=== PATIENT | female | born 1950 | race Caucasian/White ===

== ENCOUNTER 2019-05-29 07:14 | Emergency (ER) | payer MEDICARE ==
--- NOTE | 2019-05-29 08:05 | ED ---
Skin Complaint - HPI Summary HPI Summary: This pt is a 68 Y/O F presenting to [facility] accompanied by her son with a CC of shingles that has been present for 6 days. She states that she has not been diagnosed and is not taking any pharmaceutical drugs but is currently taking herbs and oils for her condition. She states that her condition has worsened this morning when she woke up and states that she has been unable to close her L eye and can feel my nerves in my L ear. The rash is located to her L side of her neck and her L shoulder. She stats that the pain feels like her nerve endings are on fire and are burning intermittently. She states that the pain lasted for three days and is currently subsiding. She rates the pain a 2/10 in severity. She states that she has decreased hearing normally but her L side is much quitter and sounds like she is in a hallway. She denies any fevers, coughs , headaches, SOB, CP, and N/V. She states that she does not want to use any steroids. She states no aggravating or alleviating factors. - History of Current Complaint Chief Complaint: EDRashSkinAbscess Time Seen by Provider: 05/29/19 07:53 Stated Complaint: SHINGLES/PARALYSIS ON LEFT SIDE OF FACE PER PT Hx Obtained From: Patient Onset/Duration: Started Days Ago - 6, Still Present, Worse Since - this morning Skin Exposure Onset/Duration: Days Ago - 6 Timing: Constant Onset Severity: Moderate Current Severity: Mild Pain Intensity: 2 Pain Scale Used: 0-10 Numeric Skin Location: Face - L side including L eye and L ear, Neck - L sided, Other: - L shoulder Character: Hives Aggravating Symptom(s): Nothing Alleviating Symptom(s): Nothing Associated Signs & Symptoms: Negative - fevers, coughs, headaches, SOB, CP, and N/V, Rash - L shoulder and neck - Allergy/Home Medications Allergies/Adverse Reactions: Allergies Allergy/AdvReac Type Severity Reaction Status Date / Time No Known Allergies Allergy Verified 05/29/19 07:20 PMH/Surg Hx/FS Hx/Imm Hx Previously Healthy: Yes Endocrine/Hematology History: Denies: Hx Diabetes Cardiovascular History: Denies: Hx Hypertension Infectious Disease History: No Infectious Disease History: Denies: Traveled Outside the [place] in Last 30 Days - Family History Known Family History: Negative: Cardiac Disease, Hypertension - Social History Occupation: Retired Lives: With Family Alcohol Use: None Hx Substance Use: No Substance Use Type: Reports: None Hx Tobacco Use: No Smoking Status (MU): Former Smoker Amount Used/How Often: States she quit in 1987 Review of Systems Negative: Fever ENT: Other - States that her L eye and L ear are paralysied Negative: Chest Pain Negative: Shortness Of Breath, Cough Negative: Vomiting, Nausea Skin: Other - Pain associated with the rash, has decreased since onset Positive: Rash - L shoudler and L neck Negative: Headache All Other Systems Reviewed And Are Negative: Yes Physical Exam - Summary Physical Exam Summary: Appearance: The patient is well-nourished in no acute distress and in no acute pain. Skin: Vesicular blistering erythematous rash over her upper L torso, barely crosses the midline. HEENT: The head is normocephalic and atraumatic. The pupils are equal and reactive. The conjunctivae are clear and without drainage. Nares are patent and without drainage. Mouth reveals moist mucous membranes and the throat is without erythema and exudate. The external ears are intact. The ear canals are patent and without drainage. The tympanic membranes are intact. No versicles in her ear. Neck: The neck is supple with full range of motion and non-tender. There are no carotid bruits. There is no neck vein distension. Respiratory: Chest is non-tender. Lungs are clear to auscultation and breath sounds are symmetrical and equal. Cardiovascular: Heart is regular rate and rhythm. There is no murmur or rub auscultated. There is no peripheral edema and pulses are symmetrical and equal. Abdomen: The abdomen is soft and non-tender. There are normal bowel sounds heard in all four quadrants and there is no organomegaly palpated. Musculoskeletal: There is no back tenderness noted. Extremities are non-tender with full range of motion. There is good capillary refill. There is no peripheral edema or calf tenderness elicited. Neurological: Patient is alert and oriented to person, place and time. The patient has symmetrical motor strength in all four extremities. Cranial nerves are grossly intact. Deep tendon reflexes are symmetrical and equal in all four extremities. Partial facial paralysis to her lower facial. Psychiatric: The patient has an appropriate affect and does not exhibit any anxiety or depression. Triage Information Reviewed: Yes Vital Signs On Initial Exam: Initial Vitals Temp Pulse Resp BP Pulse Ox 97.5 F 84 16 140/95 99 05/29/19 07:17 05/29/19 07:17 05/29/19 07:17 05/29/19 07:17 05/29/19 07:17 Vital Signs Reviewed: Yes Procedures - Sedation Patient Received Moderate/Deep Sedation with Procedure: No Diagnostics - Vital Signs Vital Signs Temp Pulse Resp BP Pulse Ox 05/29/19 07:17 97.5 F 84 16 140/95 99 - Laboratory Lab Statement: Any lab studies that have been ordered have been reviewed, and results considered in the medical decision making process. Course/Dx - Course Course Of Treatment: Ms. Mercado has successfully diagnosed herself as having shingles. She has been using integrative medicine. It has been over 72 hours but she has a new onset of symptoms spread to her face with a Jojo Coronado syndrome. Therefore I recommended antivirals and close follow-up at [facility]. - Diagnoses Provider Diagnoses: Shingles, Pavo Coronado syndrome (geniculate herpes zoster) Discharge ED - Sign-Out/Discharge Documenting (check all that apply): Patient Departure - discharge - Discharge Plan Condition: Stable Disposition: HOME Prescriptions: ValACYclovir (*) [Valtrex 1 GM(*)] 1 gm PO TID #21 tab Patient Education Materials: Shingles (ED) Referrals: [facility] [Outside] - 3 Days Additional Instructions: PLEASE RETURN TO THE ED IMMEDIATELY FOR WORSENING OR CONCERNING SYMPTOMS AND FOLLOW UP WITH [facility] IN 1-3 DAYS. Take the prescribed medications as directed. - Billing Disposition and Condition Condition: STABLE Disposition: Home - Attestation Statements Document Initiated by Usha: Yes Documenting Scribe: Kelvin Farias Provider For Whom Usha is Documenting (Include Credential): Jairon Dumont MD Scribe Attestation: IKelvin, scribed for Jairon Dumont MD on 05/29/19 at 0946. Scribe Documentation Reviewed: Yes Provider Attestation: The documentation as recorded by the Kelvin tavera accurately reflects the service I personally performed and the decisions made by me, Jairon Dumont MD Status of Scribe Document: Viewed
[2019-05-29 08:50] VITALS: BP 124/86
== END 2019-05-29 08:45 | disposition home or self-care (01) ==
LOC: ED 07:14
DX: B02.9 Zoster without complications (principal); B02.21 Postherpetic geniculate ganglionitis; Z87.891 Personal history of nicotine dependence
CPT/HCPCS: 99282

== ENCOUNTER 2019-07-05 12:45 | Emergency (ER) | payer MEDICARE ==
[2019-07-05 13:26] VITALS: BP 130/95
--- NOTE | 2019-07-05 13:40 | UC ---
Ear Complaint HPI - HPI Summary HPI Summary: Patient is a 68yo female presenting with complaint that the rubber end of her hearing aid is stuck in her left ear since last night. Patient states she " tried everything to get it out." Tried flushing with water, scooping out with q tip, and tried looking for it with flashlight. Patient is concerned it may not come out. Denies feeling of foreign body but states that ear "has always felt different." Denies pain. Denies drainage from ear. - History of Current Complaint Chief Complaint: UCForeignBody Stated Complaint: EAR COMPLAINT Hx Obtained From: Patient Pain Intensity: 0 - Allergies/Home Medications Allergies/Adverse Reactions: Allergies Allergy/AdvReac Type Severity Reaction Status Date / Time No Known Allergies Allergy Verified 07/05/19 13:15 Home Medications: Home Medications Naproxen Sodium [Aleve] 440 mg PO ONCE 07/05/19 [History Confirmed 07/05/19] PMH/Surg Hx/FS Hx/Imm Hx Previously Healthy: Yes - Surgical History Surgical History: Yes Surgery Procedure, Year, and Place: - Family History Known Family History: Positive: Non-Contributory Negative: Cardiac Disease, Hypertension - Social History Lives: With Family Alcohol Use: None Substance Use Type: None Smoking Status (MU): Former Smoker Amount Used/How Often: States she quit in 1987 Review of Systems All Other Systems Reviewed And Are Negative: No Constitutional: Positive: Negative Skin: Positive: Negative ENT: Positive: Other - foreign body in L ear Respiratory: Positive: Negative Cardiovascular: Positive: Negative Neurological: Positive: Negative Physical Exam Triage Information Reviewed: Yes Appearance: Well-Appearing, No Pain Distress, Well-Nourished Vital Signs: Initial Vital Signs Temp 98 F 07/05/19 13:16 Pulse 64 07/05/19 13:16 Resp 16 07/05/19 13:16 BP 0/0 07/05/19 13:16 Pulse Ox 100 07/05/19 13:16 Vital Signs Reviewed: Yes Eyes: Positive: Conjunctiva Clear ENT: Positive: Hearing grossly normal, Pharynx normal, TMs normal - TMs intact b /l. no foreign body noted in either ear. no discharge or drainage.. Negative: TM bulging, TM dull, TM red Neck: Positive: Supple Respiratory: Positive: No respiratory distress Neurological: Positive: Alert Psychological: Positive: Age Appropriate Behavior Skin Exam: Normal Ear Complaint Course/Dx - Course Course Of Treatment: No foreign body noted in either ear. Dr. Madrid also looked, as the patient requested reassurance. Educated patient on foreign bodies in ears and provided reassurance that her ears are normal and without foreign bodies. Patient voiced understanding. - Differential Dx/Diagnosis Provider Diagnosis: Normal ear exam Discharge ED - Sign-Out/Discharge Documenting (check all that apply): Patient Departure All imaging exams completed and their final reports reviewed: No Studies - Discharge Plan Condition: Stable Disposition: HOME Patient Education Materials: Ear Foreign Body (ED) Additional Instructions: As discussed, the rubber end of your hearing aid is not stuck in your ear. It likely fell out on its own. Both ears are clear and normal. If this ever happens again, you are more than welcome to come back. Hearing aids are easily removed when stuck in the ear. - Billing Disposition and Condition Condition: STABLE Disposition: Home
== END 2019-07-05 14:00 | disposition home or self-care (01) ==
LOC: UCEAST 12:45
DX: Z03.89 Encounter for observation for other suspected diseases and conditions ruled out (principal); Z87.891 Personal history of nicotine dependence
CPT/HCPCS: 99211; G0463

== ENCOUNTER 2019-11-03 08:45 | Day surgery (SDC) | payer MEDICARE ==
[~2019-11-03 08:45] MED LIST: Acetaminophen TAB* 325 MG PO PRN; Buffered Lidocaine 1% SYRIN* 1 ML/SYRINGE INTRADERM ONE
[2019-11-03] MEDS ORDERED: Midazolam* 1 MG/ML 5 ML VIAL (5 MG) ONE (09:53)
[2019-11-03] MEDS ORDERED: Cyclopentolate 1% OPTH.SOL* 2 ML BTL ONE (10:12)
[2019-11-03] MEDS ORDERED: Lidocaine 1% MPF ** 5 ML VIAL ONE (10:13)
[2019-11-03] MEDS ORDERED: Phenylephrine OPHTH SOL 2.5%* 2 ML ONE (10:13)
[2019-11-03] MEDS ORDERED: Tropicamide 1% OPTH.SOL* BTL ONE (10:13)
[2019-11-03] MEDS ORDERED: Neomycin/Polymy/Dex OPHTH.OIN* 3.5 GM ONE (10:13)
[2019-11-03] MEDS ORDERED: Ketorolac 0.5% OPHTH (NF) 0.5 % 5 ML BTL ONE (10:13)
[2019-11-03] MEDS ORDERED: Tetracaine 0.5% OPTH.SOL 4 ML* 1 DROP BTL ONE (10:13)
[2019-11-03] MEDS ORDERED: fentaNYL* 50 MCG/ML 2 ML VIAL (100 MCG VIAL) ONE (10:31)
[2019-11-03 11:19] VITALS: BP 150/76
--- NOTE | 2019-11-03 12:01 | OP ---
DATE OF OPERATION/DATE OF DICTATION: 11/03/2019 - [facility] DATE OF : 1950. SURGEON: Dr. Elmer Caballero. BOTTLE HOUSE PUMPER: None. ANESTHESIA: Topical with intravenous sedation. PRE-OP DIAGNOSIS: Cataract, left eye. POST-OP DIAGNOSIS: Cataract, left eye. OPERATIVE PROCEDURE: Phacoemulsification and cataract extraction with posterior chamber intraocular lens implant, left eye. COMPLICATIONS: None. BLOOD LOSS: None. DESCRIPTION OF PROCEDURE: The patient was brought to the operating room and received a small amount of intravenous sedation. A drop of Tetracaine was placed in her left eye. She was prepped and draped in the usual sterile fashion for ophthalmic surgery and attention was directed to the left eye where a speculum was placed. A paracentesis was created at the 5 o'clock position and 0.1 cc of 1 percent preservative-free Lidocaine was injected into the anterior chamber followed by DisCoVisc. The eye was digitally stabilized while a 2.75 mm keratome was used to create a triplanar clear corneal incision at the 3 o'clock position. A continuous curvilinear capsulorrhexis was created with a cystotome and Utrata forceps. BSS on a cannula was used to hydrodissect the lens from the capsule. Phacoemulsification was performed in a divide-and- conquer technique to create four fragments which were removed. Residual cortical material was removed with irrigation and aspiration. DisCoVisc was used to inflate the capsular bag and an AUOOTO 20.0 diopter lens was folded and inserted into the capsular bag. DisCoVisc was removed using irrigation and aspiration. BSS on a cannula was used to hydrate the corneal stroma and seal the wound. At the end of the case the pupil was round and the lens was centered. The eye was of normal pressure and the wound was water tight. The speculum was removed and topical Maxitrol ointment was placed on the surface of the eye. The eye was closed, patched and shielded and the patient was sent to the recovery room in stable condition with post operative instructions and follow-up appointment given. [id number]/CPS #: [id number] MTDD
== END 2019-11-03 11:12 | disposition home or self-care (01) ==
LOC: OREAST 08:45
PROVIDERS: ATTEND Ophthalmology
DX: H25.032 Anterior subcapsular polar age-related cataract, left eye (principal); H25.042 Posterior subcapsular polar age-related cataract, left eye; Z87.891 Personal history of nicotine dependence; M19.90 Unspecified osteoarthritis, unspecified site; I83.90 Asymptomatic varicose veins of unspecified lower extremity
CPT/HCPCS: A9270-GY; J2250; J3010; V2632

== ENCOUNTER 2021-04-03 15:31 | Inpatient (IN) ==
[2021-04-03 16:27] LABS: ABS Basophils 0.1 10^3/ul (0-0.2); ABS Eosinophils 0.2 10^3/ul (0-0.6); ABS Lymphocytes 2.1 10^3/ul (1.0-4.8); ABS Monocytes 0.6 10^3/ul (0-0.8); ABS Neutrophils 3.7 10^3/ul (1.5-7.7); Eosinophil % 2.8 %; Hematocrit 38 % (35-47); Hemoglobin 12.7 g/dL (12.0-16.0); Lymphocyte % 31.9 %; Mean Corpuscular HGB Conc 34 g/dL (31-36); Mean Corpuscular Hemoglobin 31 pg (27-31); Mean Corpuscular Volume 93 fL (80-97); Mean Platelet Volume 8.1 fL (7.4-10.4); Platelet Count 247 10^3/uL (150-450); Red Cell Distribution Width 15 % (10-15); White Blood Count 6.7 10^3/uL (3.5-10.8)
[2021-04-03 16:47] LABS: Albumin 4.1 g/dL (3.2-5.2); Albumin/Globulin Ratio 1.3 (1-3); Calcium 8.7 mg/dL (8.6-10.3); EGFR African American 84.6 (>60); EGFR Non-African American 69.9 (>60); Globulin 3.2 g/dL (2-4); Magnesium 2.3 mg/dL (1.9-2.7); Potassium 4.1 mmol/L (3.5-5.0); Total Bilirubin 0.3 mg/dL (0.2-1.0); Total Protein 7.3 g/dL (6.4-8.9)
[2021-04-03 16:56] LABS: INR 1.04 (0.86-1.15)
[2021-04-03 17:04] LABS: T4, Total 8.36 mcg/dL (6.09-12.23)
[2021-04-03 17:08] LABS: TSH Ultra Thyroid Stim Horm 2.39 mcIU/mL (0.34-5.60)
[2021-04-03] MEDS: cefTRIAXone 2 GM ADDV.VIAL 2 GM in NS 0.9% 100 ml BAG 100 ML IV SCH (17:59)
[2021-04-03] MEDS: Enoxaparin 40 MG/0.4 ML SYR SUBCUT SCH (18:00)
[2021-04-03 19:04] LABS: HDL Cholesterol 46.2 mg/dL
[2021-04-03 20:02] LABS: Troponin I 0.03 ng/mL (<0.03)
[2021-04-04 06:22] LABS: Calcium 8.5 mg/dL (8.6-10.3); EGFR African American 89.7 (>60); EGFR Non-African American 74.1 (>60); Phosphorus 3.3 mg/dL (2.5-5.0); Potassium 3.8 mmol/L (3.5-5.0)
[2021-04-04] MEDS: cefTRIAXone 2 GM ADDV.VIAL 2 GM in NS 0.9% 100 ml BAG 100 ML IV SCH (10:23)
[2021-04-04] MEDS: Enoxaparin 40 MG/0.4 ML SYR SUBCUT SCH (10:24)
[2021-04-05] MEDS: cefTRIAXone 2 GM ADDV.VIAL 2 GM in NS 0.9% 100 ml BAG 100 ML IV SCH (08:27)
[2021-04-05] MEDS: Enoxaparin 40 MG/0.4 ML SYR SUBCUT SCH (08:32)
[2021-04-06] MEDS: Enoxaparin 40 MG/0.4 ML SYR SUBCUT SCH (09:13)
[2021-04-06] MEDS: cefTRIAXone 2 GM ADDV.VIAL 2 GM in NS 0.9% 100 ml BAG 100 ML IV SCH (09:14)
[2021-04-06 18:41] LABS: Anaplasma phagocytophilum Negative (Negative); B. miyamotoi PCR, B Negative (Negative); Babesia divergens/MO-1 Negative (Negative); Babesia ducani Negative (Negative); Ehrlichia chaffeensis Negative (Negative); Ehrlichia ewingii/canis Negative (Negative); Ehrlichia muris eauclairensis Negative (Negative)
[2021-04-07 01:00] LABS: IgG Immunoblot Positive (Negative); IgM Immunoblot Negative (Negative)
[2021-04-07] MEDS: cefTRIAXone 2 GM ADDV.VIAL 2 GM in NS 0.9% 100 ml BAG 100 ML IV SCH (08:51)
[2021-04-07] MEDS: Enoxaparin 40 MG/0.4 ML SYR SUBCUT SCH (08:52)
[2021-04-08] MEDS: cefTRIAXone 2 GM ADDV.VIAL 2 GM in NS 0.9% 100 ml BAG 100 ML IV SCH (09:25)
[2021-04-08] MEDS: Enoxaparin 40 MG/0.4 ML SYR SUBCUT SCH (09:29)
[2021-04-08] MEDS ORDERED: Calcium Carb (TUMS) 500 mg CHEW TAB PO PRN (14:04)
[2021-04-08] MEDS ORDERED: DOXYcycline 100 MG in NS 0.9% 250 ml 250 ML IVPB SCH (15:00)
[2021-04-09] MEDS: DOXYcycline 100 MG in NS 0.9% 250 ml 250 ML IVPB SCH ×2 (05:31→17:49)
[2021-04-09 07:22] LABS: ABS Basophils 0.1 10^3/ul (0-0.2); ABS Eosinophils 0.3 10^3/ul (0-0.6); ABS Lymphocytes 2.2 10^3/ul (1.0-4.8); ABS Monocytes 0.5 10^3/ul (0-0.8); ABS Neutrophils 2.6 10^3/ul (1.5-7.7); Hematocrit 37 % (35-47); Hemoglobin 12.8 g/dL (12.0-16.0); Lymphocyte % 38.8 %; Mean Corpuscular HGB Conc 34 g/dL (31-36); Mean Corpuscular Hemoglobin 32 pg (27-31); Mean Corpuscular Volume 93 fL (80-97); Mean Platelet Volume 7.9 fL (7.4-10.4); Platelet Count 233 10^3/uL (150-450); Red Blood Count 4.01 10^6 /uL (3.70-4.87); Red Cell Distribution Width 15 % (10-15); White Blood Count 5.8 10^3/uL (3.5-10.8)
[2021-04-09 07:40] LABS: Calcium 8.8 mg/dL (8.6-10.3); EGFR African American 105.3 (>60); Magnesium 1.9 mg/dL (1.9-2.7); Potassium 3.9 mmol/L (3.5-5.0)
[2021-04-09 08:00] LABS: Calcium 8.6 mg/dL (8.6-10.3); Magnesium 1.9 mg/dL (1.9-2.7); Potassium 4.1 mmol/L (3.5-5.0)
[2021-04-09 08:06] LABS: EGFR African American 103.5 (>60); EGFR Non-African American 85.5 (>60)
[2021-04-09] MEDS: Enoxaparin 40 MG/0.4 ML SYR SUBCUT SCH (08:32)
[2021-04-10 07:07] LABS: ABS Basophils 0.1 10^3/ul (0-0.2); ABS Eosinophils 0.3 10^3/ul (0-0.6); ABS Monocytes 0.4 10^3/ul (0-0.8); ABS Neutrophils 2.8 10^3/ul (1.5-7.7); Eosinophil % 4.6 %; Hematocrit 40 % (35-47); Hemoglobin 13.5 g/dL (12.0-16.0); Lymphocyte % 36.3 %; Mean Corpuscular HGB Conc 34 g/dL (31-36); Mean Corpuscular Hemoglobin 31 pg (27-31); Mean Corpuscular Volume 94 fL (80-97); Mean Platelet Volume 7.9 fL (7.4-10.4); Platelet Count 254 10^3/uL (150-450); Red Blood Count 4.28 10^6 /uL (3.70-4.87); Red Cell Distribution Width 15 % (10-15); White Blood Count 5.6 10^3/uL (3.5-10.8)
[2021-04-10 07:23] LABS: Calcium 8.9 mg/dL (8.6-10.3); EGFR African American 93.9 (>60); EGFR Non-African American 77.6 (>60); Potassium 3.8 mmol/L (3.5-5.0)
[2021-04-10] MEDS ORDERED: ceFAZolin VIAL 1 GM in NS *SYRINGE* 10 ML IVPB ONE (08:47)
[2021-04-10] MEDS ORDERED: ceFAZolin 2 GM in NS PREMIX 2 GM/100 ML BAG IVPB ONE (08:47)
[2021-04-10] MEDS ORDERED: ceFAZolin VIAL 1 GM in NS 0.9% 50 ML 50 ML IVPB ONE (08:47)
[2021-04-10] MEDS ORDERED: NS 0.9% 1000 ml BAG 1,000 ML IV SCH (09:00)
[2021-04-10] MEDS: Enoxaparin 40 MG/0.4 ML SYR SUBCUT SCH (11:22)
[2021-04-10] MEDS ORDERED: Lidocaine 1% VIAL 10 MG/ML VIAL ONE (12:36)
[2021-04-10] MEDS ORDERED: fentaNYL 100 mcg/2 ml 50 MCG/ML VIAL ONE (12:56)
[2021-04-10] MEDS ORDERED: Midazolam 5 mg/5 ml VIAL 1 mg/ml 5 ml VIAL (5 mg) ONE (12:56)
[2021-04-10] MEDS: ceFAZolin VIAL 1 GM in NS 0.9% 50 ML 50 ML IVPB SCH (21:04)
[2021-04-11] MEDS: ceFAZolin VIAL 1 GM in NS 0.9% 50 ML 50 ML IVPB SCH (05:29)
[2021-04-11] MEDS: Enoxaparin 40 MG/0.4 ML SYR SUBCUT SCH (09:15)
[2021-04-11 12:22] VITALS: BP 133/82
== END 2021-04-11 13:58 | disposition home or self-care (01) | DRG 244 ==
LOC: ED 15:31 → SUATTDRO 17:42 → ICU 17:42 → MEDTELE 04-07 10:10
PROVIDERS: ADMIT Student in an Organized Health Care Education/Training Program; ATTEND Internal Medicine